=== PATIENT | male | born 1965 | race Caucasian/White ===

== ENCOUNTER 2025-01-29 10:32 | Emergency (ER) | payer OTHER, MEDICARE, MEDICAID ==
[~2025-01-29] VITALS: Ht 190.5 cm; Wt 111.4 kg
[2025-01-29 10:34] VITALS: TEMP 98.6
--- NOTE | 2025-01-29 10:43 | Physician Documentation ---
History of Present Illness Chief Complaint: Flank Pain Stated Complaint: KIDNEY PAIN Time Seen by MD: 10:39 HPI 59-year-old male presents to the ED for acute onset left lower quadrant and left flank pain which started this morning proximally 2 hours ago. Patient adds that he has a history of kidney stones which have required surgery for removal. States that he has difficulty getting any comfortable positions. Denies any urinary frequency burning urination.. Day of Onset: Jan 29, 2025 Medication Reconciliation Allergies: Coded Allergies: morphine (Verified Allergy, Unknown, 01/29/25) ondansetron (Verified Allergy, Unknown, 01/29/25) Uncoded Allergies: CIPROFLAXACIN (Allergy, Unknown, 01/29/25) Physical Exam Vital Signs: Temperature: 98.6, Source: Oral, Heart Rate: 100, Respiratory Rate: 20, BP: 137/95, Pulse Oximetry: 94, Weight: 111.360 Oxygen Flow Rate: 0 Physical Exam General: Alert, no apparent distress. Chest: No accessory muscle use. Cardiovascular: Regular rate and rhythm, no murmurs. Gastrointestinal: Soft, nontender, nondistended. Bowels sounds present. Positive left-sided CVA tenderness Extremities: Normal range of motion, no deformity. Neurologic: Oriented x4. Psychiatric: Normal mood and affect. Skin: Normal color, warm and dry. No edema, no ecchymosis. Progress Results/Orders Results/Orders Vital Signs 01/29/25 10:34 Temp 98.6 Pulse 100 Resp 20 B/P (MAP) 137/95 Pulse Ox 94 O2 Flow Rate 0 Medical Decision Making Findings Initially concerned for possible obstructing left kidney stone. CT did not indicate that that was the case however the Toradol provided to the patient alleviated most of all of his symptoms. Laboratory values did not show any signs of an infectious process as well. This time I am going to discharge him have him follow up with the primary care Differential Dx:Considerations: Include: AAA, Angina/GA, Aortic dissection, Appendicitis, Bowel obstruction, Cholangitis, Cholelithasis, Constipation, Diverticular disease, Esophageal rupture, Esophagitis, Gastritis/PUD, Gastroenteritis, GI hemorrhage, Hernia, Hepatitis, Inflammatory BD, Ischemic bowel, Pancreatitis, Porphyria, Testicular torsion, Trauma, intraabdominal, Urinary obstruction, Urinary tract infection, Urolithiasis, Other Departure Disposition: 01 HOME / SELF CARE / HOMELESS Impression: Primary Impression: Calculus of kidney Condition: Stable Discharge Instructions: Kidney Stones Referrals: NO PRIMARY CARE PROVIDER (PCP) Signature Scribe Signature: f Attestation: Scribed for Dequan Ceron [employer]on Filling Machine Operator by Dequan Bedoya NP . 01/29/25 16:04 DEQUAN CERON NP Jan 29, 2025 10:43
[2025-01-29] MEDS: ketorolac trometh 30MG/ML vial 30 MG/ML VIAL IV ONE (10:48)
--- NOTE | 2025-01-29 11:19 | RADIOLOGY REPORT ---
CT abdomen and pelvis without contrast INDICATION: kidney stone left side TECHNIQUE: Serial axial images were performed through the abdomen and pelvis and then reformatted in the sagittal and coronal plane. All CT scans at this medical facility are performed using dose modulation techniques as appropriate to a performed exam including the following: Automated exposure control was utilized; adjustment of the MA and/or KvP according to patient size; and use of iterative reconstruction technique. FINDINGS: Liver and spleen are normal in size without focal mass. No renal stones or hydronephrosis. 5 cm cyst right kidney. No masses or enlargement of the adrenal glands or pancreas. No biliary dilatation. No gallstones. No distention of bowel loops to suggest mechanical obstruction of bowel. The ap pendix is normal in appearance. No free fluid. Within the pelvis, bladder is smooth walled without stones. No abnormal masses or fluid collections. IMPRESSION: 1. No evidence of urinary tract calculi or obstruction. 2. Incidental note made of a 5 cm right renal cyst. 3. Postsurgical changes in the lower lumbar spine. Computed Tomographic Radiation Dosimetry Report: Total CTDI vol = 34 mGy Total DLP = 17 70 mGy-cm Low dose protocols were performed.
[2025-01-29 11:43] LABS: MEAN PLATELET VOLUME 9.3 FL (7.4-10.4); RED CELL DISTRIBUTION WIDTH 13.6 % (11.5-14.5)
[2025-01-29 11:52] LABS: CREATININE 1.24 MG/DL (0.60-1.10); TOTAL CARBON DIOXIDE 26.4 MMOL/L (24-32); eCRCL 79 ML/MIN; eGFR 60 ML/MIN
[2025-01-29 12:42] VITALS: BP 121/68; PULSE 67; RESP 16; O2SAT 94
== END 2025-01-29 12:40 | disposition home or self-care (01) ==
LOC: ER 10:32
DX: N20.0 Calculus of kidney (principal); Z87.442 Personal history of urinary calculi; Z88.5 Allergy status to narcotic agent; Z88.8 Allergy status to other drugs, medicaments and biological substances
CPT/HCPCS: 36415; 74176; 80053; 83690; 85025; 96374; 96375; 99285; J1200; J1885